=== PATIENT | male | born 1965 ===

== ENCOUNTER 2022-09-13 09:03 | Inpatient (IN) | payer OTHER ==
[2022-09-13] VITALS (298 sets, daily range): BP systolic 92–111; BP diastolic 53–76; PULSE 106–122; TEMP 97.8; O2SAT 85–100
[~2022-09-13] VITALS: Ht 175.3 cm; Wt 87.2 kg
[2022-09-13 09:41] LABS: HEMATOCRIT 39.3 % (42.0-52.0); HEMOGLOBIN 13.1 g/dl (13.5-18.0); MEAN CELL VOLUME 98 fl (80.0-100.0); MEAN CORPUSCULAR HEMOGLOBIN 33 pg (27-31); MEAN CORPUSCULAR HGB CONC 33 g/dl (33.0-37.0); MEAN PLATELET VOLUME 10.3 fl (7.4-10.4); PLATELET COUNT 157 K/mm3 (130-400); RED BLOOD COUNT 4.03 M/mm3 (4.20-5.60); REDCELL DISTRIBUTION WIDTH-CV 13.8 % (11.5-14.5)
[2022-09-13 09:47] LABS: INR 1.2 (0.8-3.0); PROTHROMBIN TIME 13.3 SECONDS (9.7-12.8)
[2022-09-13 09:53] LABS: ALBUMIN 3.1 gm/dL (3.5-5.0); C-REACTIVE PROTEIN 20.16 mg/dL (0.00-0.50); CALCIUM 8.6 mg/dL (8.4-10.2); CREATININE, serum 4.6 mg/dL (0.72-1.25); POTASSIUM 5.1 mmol/L (3.5-4.5); TOTAL PROTEIN 6.6 gm/dL (6.2-8.1)
[2022-09-13 10:03] LABS: BILIRUBIN,TOTAL 4.5 mg/dL (0.2-1.2)
[2022-09-13 10:18] LABS: BAND 13 % (0-10); LYMPHOCYTE 2 % (20.0-51.0); NEUTROPHILS 81 % (42.0-75.2); PLATELET ESTIMATE NORMAL (NORMAL)
[2022-09-13 10:47] LABS: PARTIAL THROMBOPLASTIN TIME 42.9 SECONDS (26.0-37.0)
[2022-09-13] MEDS ORDERED: LYRICA 100MG C100 M1 PO (11:49)
--- NOTE | 2022-09-13 12:28 | NUR ---
1205 REPORT FROM KIER HAND NURSE OBTAINED. 1220 PT RETUNRED TO ICU BED 8 POST PACEMAKER PLACEMENT. INCISION TO LEFT UPPER CHEST WITH DRESSING CDI. SLING TO LUE PLACED TO BE KEPT ON FOR 24 HOURS. HEAD OF BED ELEVATED 30 DEGREES. PT VS WNL. RESTING AT THIS TIME. WILL MONITOR VS PER POST OP PROTOCAL. AT BEDSIDE. PT DENIES PAIN. CALL LIGHT WITHIN REACH.
--- NOTE | 2022-09-13 14:00 | NUR ---
1230 REPORT OBTAINED FROM ER NURSE SHAE. 1250 PT ADMIT TO ICU BED 7. PT IS ALERT AND ORIENTED TALKING TO STAFF. PT TRANSFERED FROM ER [facility] TO ICU BED X3 NURSES. PT STABLE WITH LEVOPHED AND DOBUTAMINE DRIP HANGING, DOSES VERIFIED AND CONFIRMED. INITIAL BP: 95/58 P:122. DR. WILCOX AT BEDSIDE ASESSING PT NOW. MULTIPLE LEG ABRASIONS NOTED FROM FALLS\ CRAWLING ON FLOOR TO REACH PHONE FOR HELP. RIGHT ELBOW WITH ABRASION WELL. PT DENIES PAIN AT THIS TIME. PT COWORKER BROUGHT BACK AND IS AT BEDSIDE NOW.
[2022-09-13 15:16] LABS: COLLECTION METHOD CLEAN CATCH
[2022-09-13 15:28] LABS: PH 6.5 (5.0-8.5); URINE APPEARANCE Clear (CLEAR/HAZY); URINE COLOR Yellow (YELLOW); URINE GLUCOSE TRACE (NEGATIVE); URINE KETONE TRACE (NEGATIVE); URINE PROTEIN(semi-quant) 3+ (NEGATIVE)
[2022-09-13 15:29] LABS: URINE BLOOD 3+ (NEGATIVE); URINE NITRATE Negative (NEGATIVE); URINE UROBILINOGEN 0.2 E.U/dL (0.2-1.0)
[2022-09-13 15:30] LABS: MUCOUS Present (NOT PRESENT); SQUAMOUS EPITHELIAL None Seen /hpf (0-10); URINE BACTERIA Rare /hpf (NONE SEEN); URINE RBC 20-50 /hpf (0-2)
[2022-09-13 15:31] LABS: TRICYCLIC ANTIDEPRESS URINE NEGATIVE
--- NOTE | 2022-09-13 16:20 | NUR ---
Patient scheduled telehealth visit with Dr. Holt, Infectious Disease. Pt consents to visit. Equipment set up, audio and video connections established. Visit conducted by . No technical concerns or issues.
[2022-09-13 17:45] LABS: ALBUMIN 3.1 gm/dL (3.5-5.0); CALCIUM 8.6 mg/dL (8.4-10.2); CREATININE, serum 4.63 mg/dL (0.72-1.25); PHOSPHOROUS 10.2 mg/dL (2.3-4.7); POTASSIUM 5.2 mmol/L (3.5-4.5)
--- NOTE | 2022-09-13 19:27 | NUR ---
1730 REPORT OBTAINED FROM ED NURSE. 1745 PT TO ICU BED 6. PT ALERT AND ORIENTED. VS WNL. DENIES PAIN AT THIS TIME. NO SKIN ISSUES NOTED OR REPORTED. PT NPO AFTER MIDNIGHT FOR PROCEDURE IN MORNING. PT AWARE.
[2022-09-13 20:21] LABS: ARTERIAL BLD GAS O2 SATURATION 96.9 % (92-100); ARTERIAL BLD GAS TCO2 CT 16.1; ARTERIAL BLOOD GAS BASE EXCESS -9.2 (-2-2); ARTERIAL BLOOD GAS HCO3 15.2 meq/L (22-26); ARTERIAL BLOOD GAS PCO2 28.9 mmHg (35-45); ARTERIAL BLOOD GAS PO2 93.7 mmHg (80-100); ARTERIAL BLOOD GAS pH 7.34 (7.35-7.45)
[2022-09-13 21:23] LABS: CALCIUM 7.2 mg/dL (8.4-10.2); CREATININE, serum 4.72 mg/dL (0.72-1.25); POTASSIUM 4.4 mmol/L (3.5-4.5)
[2022-09-13 22:10] LABS: PARTIAL THROMBOPLASTIN TIME 39.5 SECONDS (26.0-37.0)
[2022-09-14] VITALS (907 sets, daily range): BP systolic 92–121; BP diastolic 65–85; PULSE 99–122; TEMP 97.7–100; O2SAT 75–100
[2022-09-14 00:32] LABS: CREATININE, serum 4.9 mg/dL (0.72-1.25); FRACTIONAL EXCRETION OF NA+ 12.98 %
[2022-09-14 04:46] LABS: HEMATOCRIT 32.5 % (42.0-52.0); HEMOGLOBIN 11.3 g/dl (13.5-18.0); MEAN CELL VOLUME 94 fl (80.0-100.0); MEAN CORPUSCULAR HEMOGLOBIN 33 pg (27-31); MEAN CORPUSCULAR HGB CONC 35 g/dl (33.0-37.0); MEAN PLATELET VOLUME 10.8 fl (7.4-10.4); PLATELET COUNT 105 K/mm3 (130-400); RED BLOOD COUNT 3.45 M/mm3 (4.20-5.60); REDCELL DISTRIBUTION WIDTH-CV 13.7 % (11.5-14.5)
[2022-09-14 05:06] LABS: ALBUMIN 2.5 gm/dL (3.5-5.0); CALCIUM 6.7 mg/dL (8.4-10.2); CREATININE, serum 4.85 mg/dL (0.72-1.25); MAGNESIUM 1.6 mg/dL (1.6-2.6); PHOSPHOROUS 8.4 mg/dL (2.3-4.7); POTASSIUM 3.9 mmol/L (3.5-4.5)
[2022-09-14 05:18] LABS: BAND 22 % (0-10); EOSINOPHIL 1 % (0-4); LYMPHOCYTE 2 % (20.0-51.0); NEUTROPHILS 75 % (42.0-75.2)
[2022-09-14 05:19] LABS: PLATELET ESTIMATE DECREASED (NORMAL)
[2022-09-14 05:44] LABS: ARTERIAL BLD GAS O2 SATURATION 96.5 % (92-100); ARTERIAL BLD GAS TCO2 CT 18.2; ARTERIAL BLOOD GAS BASE EXCESS -6.5 (-2-2); ARTERIAL BLOOD GAS HCO3 17.3 meq/L (22-26); ARTERIAL BLOOD GAS PCO2 29.7 mmHg (35-45); ARTERIAL BLOOD GAS PO2 86.4 mmHg (80-100); ARTERIAL BLOOD GAS pH 7.38 (7.35-7.45)
--- NOTE | 2022-09-14 10:15 | NUR ---
Initial visit; Patient thanked Strip Catcher for looking in on him, offering encouragement and prayer along with God's blessings. Strip Catcher will follow up.
[2022-09-14 10:20] LABS: TROPONIN-I 1.183 ng/mL (0.00-0.033)
[2022-09-14 10:35] LABS: ALBUMIN 2.4 gm/dL (3.5-5.0); BILIRUBIN,DIRECT 2.1 mg/dL (0.0-0.5); BILIRUBIN,TOTAL 2.8 mg/dL (0.2-1.2); TOTAL PROTEIN 4.5 gm/dL (6.2-8.1)
--- NOTE | 2022-09-14 10:54 | NUR ---
Patient resting, staff spoke with patient family. Reviewed education for chronic heart failure. Reviewed Via [facility] CHF 'zones sheet', with emphasis on daily weights, obtaining dry weights, monitoring for edema, shortness of breath, decreased endurance, or feeling full when eating less. Reviewed importance of medication compliance with all prescribed medications and when to call your medical provider (CHF Zones). Patient verbalized understanding. Patient s EF is 10-15% which does qualify for Cardiac Rehab. STaff will f/u later today/tomorrow to review options for referral to local [place] facility.
--- NOTE | 2022-09-14 11:07 | NUR ---
MARCELA attempted to meet with patient at bedside to complete intake. Patient drowsy due to just getting a dose of valium. Patients mother Brittney ([phone]) and sister Rox ([phone]) are both present at bedside and intake completed via patients mother Brittney. Patient here from [place], [place] and is here for the start of a new job at [employer]. Employer repChung Kasper, has been in and out yesterday and today. Per Brittney, patient is fully independent with his ADL's and IADL's. He does not utilize home oxygen. Patient does not utilize any DME to assist with mobility at home, however has expressed to Brittney that he would like a walker post discharge. Brittney verbalizes that she is planning on buying one. PCP is Dr. Brooke Andrew in [place], [place]. He utilizes [facility]. Patient does not have a DPOA-HC established at this time. Per Brittney, the patient is legally to Kristy Maynard ([phone]) and has been for 12 years, however Kristy is a heavy etho drinker that has end stage cirrhosis requiring weekly thoracentesis. Kristy is also battling stage 4 breast cancer and is being tend to by home health nurses and private care nurses in [place] and is planning on staying in [place] while he is here. Patient also has (1) daughter named Karen, but the patient does not have a relationship with her due to her fathers drinking, and Brittney does not have contact with her. Per Brittney, patient did not start drinking heavily until he Kristy.
[2022-09-14 13:53] LABS: PARTIAL THROMBOPLASTIN TIME 65.3 SECONDS (26.0-37.0)
[2022-09-14 14:02] LABS: ALBUMIN 2.4 gm/dL (3.5-5.0); CALCIUM 6.8 mg/dL (8.4-10.2); CREATININE, serum 5.09 mg/dL (0.72-1.25); PHOSPHOROUS 6.7 mg/dL (2.3-4.7); POTASSIUM 3.9 mmol/L (3.5-4.5)
--- NOTE | 2022-09-14 16:10 | NUR ---
Telehealth visit conducted with Dr. Kendall Holt, Infectious Disease. Patient consented to visit. Patients mother and sister present Telecommunication initiated without any difficulties during exam. All questions were answered by Dr. Holt
--- NOTE | 2022-09-14 23:35 | NUR ---
Patient arrived to medical unit at 2000. Assessed at 2014. HepXa was due to 2029, so Heparin put on hold and drawn at 2030 per order and give to lab. Did not result until around 2200. Bolused and increased rate per protocol. Continues on Milrinone drip per orders. Complained of headache. Spoke with JENNIFER Canales, and new order received for Acetaminophen, and given per orders. Also clarifed orders for NS. When arriving to medical unit from ICU, patient had NS running at 75 ml/hr. Ally stated it was ok to continue for now. Patient in bed with call light within reach. Bed alarm on.
[2022-09-15] VITALS (9 sets, daily range): BP systolic 84–119; BP diastolic 56–80; PULSE 81–109; TEMP 98–99
[2022-09-15 04:54] LABS: HEMOGLOBIN 10.5 g/dl (13.5-18.0); MEAN CELL VOLUME 91 fl (80.0-100.0); MEAN CORPUSCULAR HEMOGLOBIN 33 pg (27-31); MEAN CORPUSCULAR HGB CONC 36 g/dl (33.0-37.0); MEAN PLATELET VOLUME 11.3 fl (7.4-10.4); PLATELET COUNT 84 K/mm3 (130-400); RED BLOOD COUNT 3.21 M/mm3 (4.20-5.60); REDCELL DISTRIBUTION WIDTH-CV 13.4 % (11.5-14.5)
[2022-09-15 05:02] LABS: HEMATOCRIT 29.1 % (42.0-52.0)
[2022-09-15 05:16] LABS: ALBUMIN 2.3 gm/dL (3.5-5.0); CALCIUM 7.3 mg/dL (8.4-10.2); CREATININE, serum 5.18 mg/dL (0.72-1.25); MAGNESIUM 1.9 mg/dL (1.6-2.6); PHOSPHOROUS 4.8 mg/dL (2.3-4.7); POTASSIUM 3.9 mmol/L (3.5-4.5)
[2022-09-15 05:29] LABS: BAND 17 % (0-10); EOSINOPHIL 1 % (0-4); LYMPHOCYTE 8 % (20.0-51.0); NEUTROPHILS 72 % (42.0-75.2); PLATELET ESTIMATE DECREASED (NORMAL)
--- NOTE | 2022-09-15 05:50 | NUR ---
Has not needed any PRN Ativan for detox protocol. Denies pain and discomfort this morning. Continues on Heparin drip and Milrinone drip per orders. Voices no questions, needs, or concerns at this time. In bed with call light within reach.
--- NOTE | 2022-09-15 09:00 | NUR ---
US in with pt at this time. pt does have family in the room
--- NOTE | 2022-09-15 13:00 | NUR ---
Pt has done well today. He did eat breakfast after the ultrasound, tolerated with no complaints. Pt sister and mom have been present most of the day. Pt was able to get a nap in. He has also been up with therapy and ambulated well with no issues. Pt reports that he feels much better than when he came in. No needs, call light within reach
--- NOTE | 2022-09-15 13:26 | NUR ---
Initial visit; Patient extremely ill but thanked Staff Trainer for looking in on him and offering prayer and God's blessings. Staff Trainer will keep Willi in her prayers.
--- NOTE | 2022-09-15 16:52 | NUR ---
Pt continues to do well with little issues. Pt reported that his neck/back were bothering him, he has had a previous surgery. PRN tylenol given for this. Pts sister and mom brought him some personal belongings. He also was able to get cleaned up, linens changed. Pt has gotten up again with therapy. No needs, will continue to monitor
--- NOTE | 2022-09-15 21:00 | NUR ---
Initial shift assessment done- pleasant, alert/oriented x4, sitting up in chair,denies pain,tele on, has Milronine drip at 1.6cc/hr, also has heparin drip that was at 1950units/hr but will change at this time to 2100units /hr - next hepxa at 0300.
[2022-09-15 22:54] LABS: HEPATITIS B SURFACE ANTIGEN Negative (Negative)
[2022-09-15 22:55] LABS: HEPATITIS B SURFACE ANTIBODY <2.0 (()); HEPATITIS C VIRUS ANTIBODY Negative (Negative)
[2022-09-16] VITALS (9 sets, daily range): BP systolic 111–135; BP diastolic 81–95; PULSE 64–95; TEMP 97.5–98.8
[2022-09-16 03:24] LABS: BASO # 0.1 K/mm3 (0.0-0.2); BASO % 0.9 % (0.0-2.0); EOS % 0.4 % (0.0-4.0); GRAN # 4.1 K/mm3 (1.4-6.5); GRAN % 73.7 % (42.2-75.2); HEMOGLOBIN 11.9 g/dl (13.5-18.0); LYMPH # 0.6 K/mm3 (1.2-3.4); LYMPH % 11.4 % (20.0-51.0); MEAN CELL VOLUME 89 fl (80.0-100.0); MEAN CORPUSCULAR HEMOGLOBIN 32 pg (27-31); MEAN CORPUSCULAR HGB CONC 36 g/dl (33.0-37.0); MEAN PLATELET VOLUME 10.7 fl (7.4-10.4); MONO # 0.7 K/mm3 (0.1-0.6); MONO % 12.3 % (1.7-9.3); PLATELET COUNT 96 K/mm3 (130-400); RED BLOOD COUNT 3.69 M/mm3 (4.20-5.60); REDCELL DISTRIBUTION WIDTH-CV 13.7 % (11.5-14.5)
[2022-09-16 03:43] LABS: ALBUMIN 2.6 gm/dL (3.5-5.0); CALCIUM 8.5 mg/dL (8.4-10.2); CREATININE, serum 4.07 mg/dL (0.72-1.25); MAGNESIUM 1.9 mg/dL (1.6-2.6); PHOSPHOROUS 3.5 mg/dL (2.3-4.7); POTASSIUM 4.1 mmol/L (3.5-4.5)
[2022-09-16 03:53] LABS: HEMATOCRIT 32.7 % (42.0-52.0)
--- NOTE | 2022-09-16 06:00 | NUR ---
No requests, did not get much sleep- just lots of interuptions, Up to [facility] z1 for loose stool, voiding good amounts of urine, heparin drip is now at 22cc/hr and milrinone drip at 1.6cc/hr
--- NOTE | 2022-09-16 08:06 | NUR ---
0700: Received report from ming BERNSTEIN. Preston BERNSTEIN primary nurse.
--- NOTE | 2022-09-16 08:06 | NUR ---
0715: Head to toe assessment completed (see shift assessment). Lungs are clear bilaterally. Patient voices complaints of dry cough with no sputum beginning last week. Bowel sounds active in all four quadrants, pt last bowel movement 0300. Patient utilizes urinal for voiding. 1+ edema to bilateral lower extremities. Patient voices no complaints of pain at this time. Patient is resting in recliner. Call light within reach. Patient phone within reach for patient to be able to order breakfast when desired. Patient voices no other needs at this time.
[2022-09-16 11:30] LABS: ALBUMIN 2.6 gm/dL (3.5-5.0); BILIRUBIN,TOTAL 5.3 mg/dL (0.2-1.2); TOTAL PROTEIN 6.3 gm/dL (6.2-8.1)
--- NOTE | 2022-09-16 13:27 | NUR ---
Follow-up visit; Patient's health is turning around dramatically and no longer a concern for dialysis. His heart is improving and he is thanking God for each improvement. Chaplain sinclair he definitely has a mission and we must pray. We prayed in thanksgiving for the drastic change in his health, that he continue to heal so he can follow God, Read the "Word" and learn what his mission will be for the rest of his life. Willi thanked again for coming in and also for her prayers that he knows are helping.
--- NOTE | 2022-09-16 13:30 | NUR ---
Telehealth visit conducted with Dr. Kendall Holt, Infectious Disease. Patient consented to visit. Garment Presser initiated without any difficulties during exam. All questions were answered by Dr. Holt.
--- NOTE | 2022-09-16 15:37 | NUR ---
SHIFT ASSESSMENT COMPLETED AND MORNING MEDICATIONS ADMINISTERED PER ORDER. PATIENT IS ALERT AND ORIENTED. STARTED THIS MORNING ON HEPARIN DRIP AND MILRINONE DRIP, TOLERATING BOTH WELL. HEPARIN DRIP D/C PER DR. FISHER'S ORDER. LUNGS CTA. DENIES PAIN OR NEEDS AT THIS TIME. CALL LIGHT WITHIN REACH.
--- NOTE | 2022-09-16 15:39 | NUR ---
AT APPROX. 1445, THIS RN WENT TO CHANGE PATIENT'S MILRINONE TUBING PER ORDER. UPON ARRIVAL IN PATIENT'S ROOM, THIS RN NOTED PATIENT'S MILRINONE DRIP TO BE ON STANDBY, DRIP WAS NOT PLACED ON STANDBY BY THIS RN, UNSURE OF HOW LONG MILRINONE WAS ON STANDBY. MILRINONE DRIP WAS RUNNING THIS MORNING WHEN THIS RN WAS IN ROOM WITH PATIENT. STUDENT IN ROOM THROUGHOUT THE DAY AND CHARGE NURSE IN ROOM TO DRAW LABS PREVIOUSLY. YASMIN HOSPITALIST JENNIFER AND CARDIOLOGY UPDATED REGARDING UNKNOWN PAUSE ON DRIP. PER CARDIOLOGY AND JENNIFER HOFFMAN, RN TO CONTINUE DRIP AND MONITOR FOR CHANGES IN PATIENT'S CONDITION. VITAL SIGNS OBTAINED AND STABLE, PATIENT DENIES ANY SHORTNESS OF BREATH OR CHEST PAIN. CALL LIGHT WITHIN REACH.
--- NOTE | 2022-09-16 16:08 | NUR ---
REMAINDER OF STOPPED MILDRINONE MEASURED, APPROX 61ML OF MILDRINONE NOTED IN BAG AND TUBING. VITAL SIGNS CONTINUE TO BE STABLE, PATIENT DENIES SYMPTOMS AT THIS TIME.
--- NOTE | 2022-09-16 18:17 | NUR ---
PATIENT IN CHAIR AT THIS TIME. AMBULATED WITH PT. DENIES ANY NEEDS OR PAIN. VITAL SIGNS REMAIN STABLE. CONTINUES ON MILRINONE DRIP.
--- NOTE | 2022-09-16 21:37 | NUR ---
Patient assessed around 1924. Alert and oriented, and able to make needs known. Denies having pain and discomfort. TLC to right IJ. Continues on Milrinone drip per orders. Voices no questions, needs, or concerns at this time. In recliner with call light within reach.
[2022-09-17 03:47] VITALS: BP 129/93; PULSE 77; TEMP 98.1
[2022-09-17 06:21] LABS: HEMOGLOBIN 12.6 g/dl (13.5-18.0); MEAN CELL VOLUME 89 fl (80.0-100.0); MEAN CORPUSCULAR HEMOGLOBIN 32 pg (27-31); MEAN CORPUSCULAR HGB CONC 36 g/dl (33.0-37.0); MEAN PLATELET VOLUME 11.5 fl (7.4-10.4); PLATELET COUNT 123 K/mm3 (130-400); RED BLOOD COUNT 3.94 M/mm3 (4.20-5.60); REDCELL DISTRIBUTION WIDTH-CV 13.5 % (11.5-14.5)
--- NOTE | 2022-09-17 06:36 | NUR ---
Patient denies having pain and discomfort. Continues on Milrinone drip per orders. Voices no questions, needs, or concerns at this time. In recliner with call light within reach.
[2022-09-17 06:44] LABS: ALBUMIN 2.5 gm/dL (3.5-5.0); CALCIUM 8.7 mg/dL (8.4-10.2); CREATININE, serum 2.42 mg/dL (0.72-1.25); MAGNESIUM 1.6 mg/dL (1.6-2.6); PHOSPHOROUS 3.6 mg/dL (2.3-4.7); POTASSIUM 3.6 mmol/L (3.5-4.5)
[2022-09-17 07:08] LABS: BAND 1 % (0-10); EOSINOPHIL 1 % (0-4); HYPOCHROMIA 1+; LYMPHOCYTE 27 % (20.0-51.0); NEUTROPHILS 55 % (42.0-75.2); PLATELET ESTIMATE DECREASED (NORMAL)
[2022-09-17 07:09] VITALS: BP 125/88; PULSE 87; TEMP 97.8
--- NOTE | 2022-09-17 07:34 | NUR ---
0700: Received report from ming Pineda RN. Primary nurse present at report as well.
--- NOTE | 2022-09-17 07:35 | NUR ---
0715: Head to toe assessment complete (see shift assessment). Patient resting in recliner as he has been throughout the night. Milrinone drip infusing through right IJ as ordered. Patient voices no complaints of pain. Patient states he's been putting his "special lotion" on rug burn areas to his knees from fall prior to hospitalization. Vital signs WNL. Patient continues to use urinal for voiding and bedside commode. Patient is alert and oriented x3 and was pleasant with this nurse. No needs voiced at this time. Call light within reach.
--- NOTE | 2022-09-17 08:27 | NUR ---
Morning medications administered as ordered. Patient resting in recliner with call light in reach. Patient upset with the breakfast he ordered and has stated disappointment with the food in general. Breakfast was reordered. Patient was asked if he would like a bath today. Patient stated "lets see how I feel later, i'm in no [place]."
--- NOTE | 2022-09-17 10:36 | NUR ---
Reviewed CHF zones, Via [facility] CHF booklet with patient. Also reviewed qualifying for Outpatient Cardiac Rehab. [facility] [place] [facility] [place] [facility] No information has been found that either of theses clinics offer this service. Staff was able to contact [facility] Card[facility] Rehab - contact information given to patient as well as HF navigator for [facility] as a resource. Our program contact information left with patient as well if referral process complication/other issues arrise. Patient verbalize understanding to above infomration.
[2022-09-17 11:09] VITALS: BP 112/86; PULSE 83; TEMP 98.2
--- NOTE | 2022-09-17 12:55 | NUR ---
SHIFT ASSESSMENT COMPLETED. PATIENT IS ALERT AND ORIENTED. DENIES PAIN. LUNGS CTA. ON MILRINONE DRIP AT 1.6 PER ORDER, TOLERATING WELL. CENTRAL LINE IN PLACE. DENIES NEEDS. CALL LIGHT WITHIN REACH.
--- NOTE | 2022-09-17 15:23 | NUR ---
Cardiology notified social work that the patient will need a life vest. The international trade analyst completed the script. MARCELA staffed with the hospitalist team. The patient is not medically cleared and will likely be here through the weekend and when life vest is secured. MARCELA met with the patient to update and review discharge plan. The patient reports that he does have health insurance. He provided MARCELA with his insurance name and policy number. The patient confirms that he has been in [employer] [employer] for work and has a newly bought truck here. He would like to return back to his home in [place] upon discharge, but shares that cardiology informed him he cannot drive right now. He states that he will get back to [place] somehow. MARCELA notified financial counseling of the patient's insurance and it was added to his account. MARCELA contacted and faxed the [employer] Vest order and the patient's information to Willi at [facility]. *Discharge plan: home*
[2022-09-17 15:37] VITALS: BP 112/83; PULSE 75; TEMP 98.1
--- NOTE | 2022-09-17 15:57 | NUR ---
This RN taken over care of patient. Patient A&Ox4, sitting comfortably in chair, no complaints of pain. Milrinone drip infusing at proper rate. No needs at this time.
[2022-09-17 19:47] VITALS: BP 133/78; PULSE 88; TEMP 98.3
[2022-09-18 00:03] VITALS: BP 121/63; PULSE 74; TEMP 97.4
[2022-09-18 03:55] VITALS: BP 127/69; PULSE 70; TEMP 97.7
[2022-09-18 05:22] LABS: HEMOGLOBIN 11.5 g/dl (13.5-18.0); MEAN CELL VOLUME 93 fl (80.0-100.0); MEAN CORPUSCULAR HEMOGLOBIN 32 pg (27-31); MEAN CORPUSCULAR HGB CONC 34 g/dl (33.0-37.0); MEAN PLATELET VOLUME 11.5 fl (7.4-10.4); PLATELET COUNT 161 K/mm3 (130-400); RED BLOOD COUNT 3.63 M/mm3 (4.20-5.60)
[2022-09-18 05:26] LABS: ALBUMIN 2.5 gm/dL (3.5-5.0); CALCIUM 8.7 mg/dL (8.4-10.2); CREATININE, serum 1.68 mg/dL (0.72-1.25); MAGNESIUM 1.5 mg/dL (1.6-2.6); PHOSPHOROUS 4.3 mg/dL (2.3-4.7); POTASSIUM 3.9 mmol/L (3.5-4.5)
[2022-09-18 05:30] LABS: HEMATOCRIT 33.7 % (42.0-52.0)
[2022-09-18 05:44] LABS: BAND 3 % (0-10); LYMPHOCYTE 42 % (20.0-51.0); METAMYELOCYTE 1 % (0-0); NEUTROPHILS 43 % (42.0-75.2)
[2022-09-18 05:45] LABS: PLATELET ESTIMATE NORMAL (NORMAL)
[2022-09-18 07:27] VITALS: BP 112/70; PULSE 81; TEMP 98.7
--- NOTE | 2022-09-18 08:00 | NUR ---
Agree with nurse FELIX Rosales assessment of the patient. Patient A&Ox4. Independent. Denies pain and discomfort. Call light within reach
--- NOTE | 2022-09-18 08:57 | NUR ---
Pt eating breakfast in recliner upon entering. Assessment done, see interventions. Swallowed morning meds without difficulty. Pt reports no pain and has no other complaints at this time. Call light within reach.
[2022-09-18 12:00] VITALS: BP 128/82; PULSE 68; TEMP 97.3
[2022-09-18 15:49] VITALS: BP 111/84; PULSE 79; TEMP 98.2
--- NOTE | 2022-09-18 16:20 | NUR ---
Pt sitting in recliner on computer upon entering. Pt complaining of a headache and given PRN tylenol per order, swallowed medications without difficulty. Pt has no other complaints at this time, call light within reach
[2022-09-18 20:08] VITALS: BP 141/93; PULSE 71; TEMP 98
[2022-09-19 00:02] VITALS: BP 140/90; PULSE 78; TEMP 97.6
[2022-09-19 05:11] VITALS: BP 124/89; PULSE 86; TEMP 98
--- NOTE | 2022-09-19 05:30 | NUR ---
ASSESSMENT COMPLETE FOR ECONOMICS FACULTY MEMBER. PT STATE THE LIFE-VEST REP SAID HE COULD DRIVE. PT EDUCATED ON THE IMPORTANCE OF NOT DRIVING HOME ALONE WITH THE LIFE-VEST. PT BELIEVES HE WILL BE FINE TO DRIVING HOME. PT NEEDS REENFORCEMENT ON THE SUBJECT. PT DENIED GENERAL PAIN, CHEST PAIN, PALPITATIONS, SOB, N,V,D OR DIZZINESS. PT EXPRESS NOT ADDITIONAL NEEDS AT THIS TIME. CALL LIGHT WITHIN REACH.
[2022-09-19 10:35] LABS: CALCIUM 8.7 mg/dL (8.4-10.2); CREATININE, serum 1.15 mg/dL (0.72-1.25); POTASSIUM 3.9 mmol/L (3.5-4.5)
[2022-09-19] MEDS ORDERED: CIPRO 500MG TA500 MG PO (11:20)
[2022-09-19] MEDS ORDERED: ASPIRIN 81M81 MG/TA2 PO (11:21)
[2022-09-19] MEDS ORDERED: ENTRESTO 24 MG1 EACH PO (11:21)
[2022-09-19] MEDS ORDERED: TOPROL XL 25MG25 MG PO (11:21)
[2022-09-19] MEDS ORDERED: ALDACTONE 25MG25 M1 PO (11:21)
[2022-09-19] MEDS ORDERED: FOLIC ACID 11 MG/TA1 PO (11:23)
[2022-09-19] MEDS ORDERED: CENTRUM MEN'S PO (11:23)
[2022-09-19] MEDS ORDERED: THIAMINE 1100 MG/TAB PO (11:23)
--- NOTE | 2022-09-19 14:30 | NUR ---
Discharge paperwork reviewed with the patient. Patient verbalized an understanding to follow doctors orders. TLC removed, tip intact. 15 minutes presseure held. Gauze and tegederm applied. [employer] life visit on the patient. Patient ambulated independently to awaiting vehicle. Personal belongings with the patient.
== END 2022-09-19 14:30 | disposition home or self-care (01) | DRG 871 ==
LOC: COL.ER 09:03 → ICU 09:58 → MEDICAL 09:58
PROVIDERS: Family Medicine; Internal Medicine; Internal Medicine Adult Congenital Heart Disease; Internal Medicine Nephrology; Internal Medicine Pulmonary Disease; Physician Assistant; Registered Nurse; Student in an Organized Health Care Education/Training Program; ADMIT Internal Medicine
DX: A41.50 Gram-negative sepsis, unspecified (principal); I21.A1 Myocardial infarction type 2; R57.0 Cardiogenic shock; R65.21 Severe sepsis with septic shock; N17.0 Acute kidney failure with tubular necrosis; E87.20 Acidosis, unspecified; I42.6 Alcoholic cardiomyopathy; M62.82 Rhabdomyolysis; G47.33 Obstructive sleep apnea (adult) (pediatric); I49.3 Ventricular premature depolarization; Z20.822 Contact with and (suspected) exposure to COVID-19; E87.5 Hyperkalemia; K76.0 Fatty (change of) liver, not elsewhere classified; F10.10 Alcohol abuse, uncomplicated; I95.9 Hypotension, unspecified; I11.0 Hypertensive heart disease with heart failure; I50.9 Heart failure, unspecified; K75.9 Inflammatory liver disease, unspecified; K72.90 Hepatic failure, unspecified without coma; I25.10 Atherosclerotic heart disease of native coronary artery without angina pectoris; I08.2 Rheumatic disorders of both aortic and tricuspid valves; B96.20 Unspecified Escherichia coli [E. coli] as the cause of diseases classified elsewhere; W18.39XA Other fall on same level, initial encounter; Y93.89 Activity, other specified; Y92.59 Other trade areas as the place of occurrence of the external cause; Z90.89 Acquired absence of other organs; Z98.84 Bariatric surgery status; Z95.5 Presence of coronary angioplasty implant and graft; Z23 Encounter for immunization
CPT/HCPCS: A9270; J0692; J1250; J1644; J1815; J2060; J2260; J3010; J3370; J3475; J7030; J7040; J7050; J7060